=== PATIENT | male | born 1990 | race Two or more races ===

== ENCOUNTER 2022-07-06 16:12 | Emergency (ER) | payer OTHER ==
[~2022-07-06] VITALS: Ht 160 cm; Wt 95.5 kg
[2022-07-06 16:40] VITALS: BP 137/88
== END 2022-07-06 17:14 | disposition home or self-care (01) ==
LOC: EMS 16:20
DX: R22.9 Localized swelling, mass and lump, unspecified (principal)
CPT/HCPCS: 99281; Z7502